=== PATIENT | female | born 1925 | race Caucasian/White ===

== ENCOUNTER 2017-03-03 16:42 | Emergency (ER) | payer OTHER ==
[~2017-03-03 16:42] MED LIST: BAYER CHILDREN'81 M1 PO; CENTRUM SILVER; COREG12.5 M1 PO; Centrum Silver Chewa PO; Coreg PO; FISH OIL PO; JANTOVEN3 MG PO; SPIRONOLACTONE25 MG PO; ZOCOR80 MG PO
[2017-03-03 17:14] LABS: EOSINOPHIL (%) 6.4 % (0-5); EOSINOPHIL COUNT 0.4 K/uL (0-0.3); HEMATOCRIT 34.3 % (36.0-46.0); IMMATURE GRANULOCYTE (%) 0.7 % (0.0-0.7); LYMPHOCYTE COUNT 2.1 K/uL (1.0-2.8); MCH 33.3 PG (29.0-34.0); MCHC 33.5 G/DL (30.0-36.0); MCV 99.4 FL (83-99); MEAN PLAT.VOLUME 9.8 uM^3 (9.5-12.4); MONOCYTE (%) 9.7 % (3-12); MONOCYTE COUNT 0.6 K/uL (0-0.8); NEUTROPHIL (%) 48.9 % (45-76); PLATELET COUNT 231 K/uL (156-360); RBC DIS.WIDTH-SD 43.6 % (39-53); RED BLOOD COUNT 3.45 M/uL (3.80-5.20); WHITE BLOOD COUNT 6.1 K/uL (4.1-10.2)
[2017-03-03 17:27] LABS: AMYLASE 71 IU/L (1-118); CHLORIDE 107 mEq/L (99-109); POTASSIUM 5.3 mEq/L (3.7-5.4); SODIUM 138 mEq/L (136-147)
[2017-03-03 17:29] LABS: GLUCOSE 113 mg/dL (70-99)
[2017-03-03 17:30] LABS: ANION GAP 7 MEQ/L (2-14)
[2017-03-03 17:32] LABS: SERUM ETHYL ALCOHOL < 10 mg/dL
[2017-03-03 17:33] LABS: GFR ESTIMATE (CALCULATED) 24 mL/min/
[2017-03-03 17:34] LABS: UREA NITROGEN (BUN) 42 mg/dL (9-23)
[2017-03-03 17:36] LABS: LIPASE 21 U/L (1.0-51.0)
[2017-03-03] MEDS ORDERED: ULTRAM50 MG PO (18:29)
== END 2017-03-03 19:05 | disposition home or self-care (01) ==
LOC: EME → TRA 16:42 → EME 16:42 → TRA 19:05
PROVIDERS: Emergency Medicine
DX: S22.32XA Fracture of one rib, left side, initial encounter for closed fracture (principal); V89.2XXA Person injured in unspecified motor-vehicle accident, traffic, initial encounter; Y92.410 Unspecified street and highway as the place of occurrence of the external cause; I12.9 Hypertensive chronic kidney disease with stage 1 through stage 4 chronic kidney disease, or unspecified chronic kidney disease; N18.9 Chronic kidney disease, unspecified; I25.2 Old myocardial infarction; Z95.5 Presence of coronary angioplasty implant and graft; E03.9 Hypothyroidism, unspecified; E78.5 Hyperlipidemia, unspecified
CPT/HCPCS: 71260; 74177; 80048; 81003; 82150; 83690; 85025; 86900; 86901; 93005; 99281; 99285; G0480